=== PATIENT | male | born 1970 | race Caucasian/White ===

== ENCOUNTER → 2016-09-27 | Day surgery (SDC) | payer OTHER ==
[~2016-09-27] MED LIST: CRESTOR5 MG PO; NEXIUM20 MG PO; PROBIOTIC1 EAC1 PO
--- NOTE | ~2016-09-27 | OR ---
Unit #: [id number] #: [id number] Patient: DESTIN CASTLE [id number] [address] [place], [place] [address] [id number] MR#: [id number] NAME: DESTIN CASTLE ROOM: Date of Procedure: 09/27/2016 Admission Date: 09/27/2016 Surgeon: Javon Casiano Jr., M.D. : 1970 Attending Physician: Javon Casiano Jr., M.D. Primary Care Physician: Jerardo Herring M.D. OPERATIVE REPORT INDICATIONS FOR PROCEDURE The patient is a 45-year-old white male, recently was referred to the office after having a positive Cologuard test. He does have intermittent reflux symptoms and was felt he needed upper and lower endoscopy. PREOPERATIVE DIAGNOSES Possible gastrointestinal bleed with intractable reflux. POSTOPERATIVE DIAGNOSES On upper endoscopy, the patient was noted to have 1+ ulcerative distal esophagitis and mild erosive gastritis and on colonoscopy to the cecum, he was noted to have diverticulosis with a few internal hemorrhoids. ANESTHESIA MAC anesthesia. PROCEDURES PERFORMED Flexible fiberoptic esophagogastroduodenoscopy with antral biopsy for Helicobacter pylori and flexible colonoscopy to the cecum. DESCRIPTION OF PROCEDURE The patient was positioned in Ortiz position with left side down and after being given MAC anesthesia, the Olympus XQ scope was passed through the proximal esophagus. The entire esophagus was examined. There was no evidence of any esophagitis involving the proximal two-thirds, but in the area of the distal esophagus, there were some small ulcerations compatible with 1+ ulcerative distal esophagitis. There was no evidence of any stenosis. The scope was advanced through the GE junction into the cardia, and down to the fundic and antral region of the stomach, retroflexed back up to the area of the cardia. There was no hiatal hernia present. The stomach distended well without evidence of rigidity. There was no evidence of any gastric ulcer disease. The scope was advanced down the prepyloric region, where there were several small punctate superficial gastric erosions compatible with mild gastritis. The scope was advanced through the pylorus and the duodenal bulb and down to the second portion of the duodenum. The entire duodenal portion examination was within normal limits. The scope was brought back up to the area of the antrum, where biopsy was taken for H pylori without significant bleeding. The scope was slowly removed. The patient repositioned for colonoscopy. Digital rectal examination was performed, which revealed no palpable mass or tenderness. No blood or stool within the rectal ampulla. The prostate was normal by palpation. The Olympus colonoscope was advanced through the Unit #: [id number] #: [id number] Patient: DESTIN CASTLE anal canal up the rectum and retroflexed down to the area of the anorectal region, there was no evidence of any fissures, but for a few small internal hemorrhoids. The scope was then straightened and advanced up in the rectosigmoid, and into the sigmoid and descending colon areas, where there were few diverticula without evidence of diverticulitis. The scope was then advanced around the splenic flexure and the transverse colon, around hepatic flexure and ascending colon, down in the area of the cecum. The light from the tip of the scope could be seen transilluminating through right lower quadrant abdominal wall area. The scope was advanced up the distal ileum approximately 5 to 10 inches. There was no evidence of any ileitis or inflammatory bowel disease. The scope was slowly removed. There were no tumors, polyps, cancer, or AVMs. No evidence of any colitis or acute diverticulitis. The caliber of the colon appeared normal throughout except for noting a few diverticula in the left colon and some internal hemorrhoids. There were no other abnormalities. The scope was removed. The patient tolerated the procedure well and discharged in satisfactory condition. Dictated by... Javon Casiano Jr., Nash. CÉSAR/raisa TD: 09/28/2016 03:24 JOB #: [id number] OPERATIVE REPORT Page 1 of 1 X Javon Casiano MD X PROCEDURE OPERATIVE NOTE
== END | disposition home or self-care (01) ==
LOC: COPS 11:37
DX: K22.10 Ulcer of esophagus without bleeding (principal); K21.0 Gastro-esophageal reflux disease with esophagitis; K29.60 Other gastritis without bleeding; K57.30 Diverticulosis of large intestine without perforation or abscess without bleeding; K64.8 Other hemorrhoids; Z87.891 Personal history of nicotine dependence
CPT/HCPCS: 87077; J2250